=== PATIENT | male | born 1950 | race Caucasian/White ===

== ENCOUNTER → 2017-11-07 | Outpatient (CLI) | payer OTHER ==
[~2017-11-07] MED LIST: ALEVE220 MG PO; COLACE100 MG PO; CYANOCOBAL1000 MCG/2 IM; CYANOCOBAL1000 MCG/2 SC; FERROUS SULFAT325 MG PO; IRON325 MG PO; K-DUR20 MEQ PO; METFORMIN HCL500 MG PO; METOPROLOL SUCC25 MG PO; NICOTINE PATCH1 EAC2 TD; NORCO 5/3251 TABLET PO; PROMETHAZINE HC25 M1 PO; PROTONIX40 MG PO; TAMSULOSIN HCL0.4 MG PO; TOPROL XL25 MG PO; ZOFRAN8 MG PO; antibiotic PO
== END | disposition home or self-care (01) ==
LOC: AMB 10:57
PROC: 0JPT0WZ Removal of Totally Implantable Vascular Access Device from Trunk Subcutaneous Tissue and Fascia, Open Approach (ICD-10-PCS; principal; 2017-11-07)
DX: Z45.2 Encounter for adjustment and management of vascular access device (principal); I87.8 Other specified disorders of veins; Z85.51 Personal history of malignant neoplasm of bladder; Z85.048 Personal history of other malignant neoplasm of rectum, rectosigmoid junction, and anus; Z92.21 Personal history of antineoplastic chemotherapy

== ENCOUNTER → 2018-03-20 | Outpatient (CLI) | payer MEDICARE, OTHER | END | disposition home or self-care (01) | LOC: CDC 09:12 | DX: Z01.810 Encounter for preprocedural cardiovascular examination (principal); D49.4 Neoplasm of unspecified behavior of bladder; I45.10 Unspecified right bundle-branch block; I49.8 Other specified cardiac arrhythmias; R94.31 Abnormal electrocardiogram [ECG] [EKG] | CPT/HCPCS: 93000 ==